=== PATIENT | female | born 1975 | race Caucasian/White ===

== ENCOUNTER 2016-11-28 15:24 | Emergency (ER) | payer BC ==
[~2016-11-28] VITALS: Ht 172.7 cm; Wt 86.2 kg
[~2016-11-28 15:24] MED LIST: ALBUTEROL SULF0.5 ML IH; ALBUTEROL-200 PUFFS/ IN; BACTRIM DS 8001 TAB PO; CARAFATE 1GM TAB1 GM PO; CEFDINIR 300MG300 MG PO; CEFDINIR300 M1 PO; CYCLOBENZAPRINE10 M1 OR; CYMBALTA60 MG PO; DIFLUCAN150 MG PO; FLEXERIL10 MG PO; HYDROXYZINE 25M25 MG PO; INDOCIN25 M1 PO; KEFLEX 500MG.500 MG PO; LORTAB 5/500 501 TAB PO; MACROBID 100MG100 MG PO; MEDROL 4MG. DOSE4 MG PO; METHYLDOPA PO; NOMEDS; PANTOPRAZOLE40 M1 PO; PERCOCET 325 MG1 TA4 PO; PHENERGAN VC +120 ML PO; PRENATAL PLUS1 TA1 PO; PROMETHAZINE D473 ML PO; SEROQUEL50 MG PO; SUBOXONE 8 MG-21 FIL SL; SUBUTEX8 M1 SL; VICODIN 5/500 T1 TAB PO; VISTARIL25 MG PO; ZOFRAN4 MG PO
--- NOTE | 2016-11-28 15:34 | Emergency Room Report ---
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 N Clinical Suspician of Infection? N Mental Status: 1 - Regular (Normal Baseline) Sepsis Risk:Low Sepsis Risk Have you (or family members/close friends) recently traveled outside the [place]? N If Yes, where/when: Have you had exposure to infectious disease within the past month? N TB? Other? Specify: Source patient, RN notes reviewed, old records Exam Limitations no limitations Comment over the last day progressive sore throat and swelling in throat with no rash or cough Cardiac Chest Pain Chest pain indicative of cardiac No Timing/Duration this afternoon Severity moderate ALLERGIES Coded Allergies: No Known Allergies (09/25/15) Home Medications Reported Medications PROMETHAZINE/DEXTROMETHORPHAN (Promethazine-Dm Syrup) 30 ML PO PRN PRN COUGH #240 ML Methylprednisolone (Medrol Dose French) 4 MG PO UD BUPRENORPHINE HCL/NALOXONE HCL (Suboxone 8 MG-2 MG Sl Film) 0.5 EFRAIN SL DAILY NEBIVOLOL HCL (Bystolic) 5 MG PO DAILY Albuterol Sulfate (Albuterol Sulfate 0.5 Ml) 0.5 ML IH #180 Cyclobenzaprine Hcl 10 MG OR #30 History Medical History General Angina: No MA: No Hypertension? Yes Hyperlipidemia? No CHF? No COPD? No Asthma? Yes Hernia? Yes CVA? No Seizures? No Diabetes? No UTI? Yes Stones? No GB Disease: No Hepatitis? No Arthritis? Yes Cataracts? No Glaucoma? No MRSA? No TB? No Cancer? No More? 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 denies: ear pain, epistaxis. Respiratory denies cough, denies shortness of breath, denies wheezing Cardiovascular denies chest pain, denies palpitations, denies syncope Gastrointestinal denies constipation, denies nausea, denies vomiting Genitourinary denies: dysuria, frequency, hesitancy, hematuria. Musculoskeletal denies back pain, denies joint pain, denies joint swelling, denies neck pain Skin denies rash Psychiatric/Neurological denies seizure Physical Exam Vital Signs Vital Signs Date Time Temp Pulse Resp B/P Pulse O2 O2 Flow FiO2 Ox Delivery Rate 11/28 1624 67 18 124/71 98 11/28 1613 18 11/28 1529 98.4 73 18 147/94 98 - WBC >12,000 or <4,000 or 10% bands? 2 or more SIRS Criteria Met? B/P:124/71 MAP:111 Creatinine >2.0? UA output<0.5ml/kg/hr for 2 hrs? Platelet count >100,000? Lactate >2.0mmol/1? INR >1.2 or PTT > than 60 sec? Evidence of Organ Dysfunction? Provider documented clinical suspician of infection? N Sepsis Criteria Count: 0 Sepsis Risk: Low Sepsis Risk General Appearance no apparent distress Eye Exam - bilateral eye PERRL, bilateral eye EOMI Ear, Nose, Throat pharyngeal erythema, tonsillar swelling Neck supple Respiratory Status No: respiratory distress. Lung Sounds bilateral: normal breath sounds. Cardiovascular regular rate/rhythm, no murmur Peripheral Pulses Pulses normal Yes Gastrointestinal soft Extremities normal inspection Strength 4 Upper Ext (L), 4 Upper Ext (R), 4 Lower Ext (L), 4 Lower Ext (R) Neurologic alert, inspector outside steam distribution II-XII nml as tested, no motor/sensory deficits Reflexes Reflexes normal Yes Mental status normal mood/affect Skin intact Medical Decision Making LABS/Meds/Orders Pt receiving controlled substance in ED? No Results/Orders Laboratory Tests 11/28/16 1550: Sodium 140, Potassium 3.5, Chloride 104, Carbon Dioxide 27, BUN 10, Creatinine 0.8, Estimated Creat Clear 128, Estimated GFR (MDRD) 80, Glucose 143 H, Calcium 8.2 L, Total Bilirubin 0.2, AST 61 H, ALT 72, Alkaline Phosphatase 93, Total Protein 6.6, Albumin 3.0 L, Globulin 3.6 H, Albumin/Globulin Ratio 0.8 L, WBC 7.7, RBC 3.97 L, Hgb 14.0, Hct 41.2, MCV 104.0 H, RDW 12.6, Plt Count 209, MPV 6.9 L, Gran % 44.2, Gran # 3.4, Lymphocytes % 48.4, Monocytes % 5.0, Eosinophils % 1.9, Basophils % 0.4, Lymphocytes # 3.7, Monocytes # 0.4, Eosinophils # 0.2, Basophils # 0.0, PUBS MCHC 33.9, MCH 35.3 H, Monoscreen NEGATIVE 11/28/16 1530: Influenza Type A Ag NOT DETECTED, Influenza Type B Ag NOT DETECTED Current Medication Orders Sig/Naveed Start time Last Medication Dose Route Stop Time Status Admin Ceftriaxone Sodium 0 .STK-MED ONE 11/28 1621 DC IV Ceftriaxone Sodium 1 GM ONCE ONE 11/28 1615 AC 11/28 Sodium Chloride 50 ML IV 11/28 1644 1613 Ketorolac 30 MG ONCE ONE 11/28 1615 DC 11/28 Tromethamine IV 11/28 1616 1613 Methylprednisolone 125 MG ONCE ONE 11/28 1615 DC 11/28 Sodium Succinate IV 11/28 1616 1613 Ceftriaxone Sodium 0 .STK-MED ONE 11/28 1610 DC .ROUTE Methylprednisolone 0 .STK-MED ONE 11/28 1610 DC Sodium Succinate .ROUTE Sodium Chloride 100 ML .STK-MED ONE 11/28 1610 DC IV Ketorolac 0 .STK-MED ONE 11/28 1609 DC Tromethamine .ROUTE Sodium Chloride 1,000 ML .Q1H1M 11/28 1600 AC 11/28 IV 11/28 1700 1551 Sodium Chloride 10 ML PRN PRN 11/28 1600 AC 11/28 IV 11/29 1546 1551 Sodium Chloride 1,000 ML .STK-MED ONE 11/28 1550 DC IV Sodium Chloride 10 ML PRN PRN 11/28 1545 AC 11/28 IV 11/29 1545 1551 Orders Procedure Date/time Status IV SALINE LOCK 11/28 1546 Active MONO SCREEN 11/28 1546 Complete COMPLETE METABOLIC PANEL 11/28 1546 Complete CBC WITH AUTO DIFF 11/28 1546 Complete STREP SCREEN THROAT 11/28 1532 Complete INFLUENZA A&B ANTIGENS 11/28 1532 Complete CULTURE, THROAT 11/28 1530 Active Departure Departure Time of Disposition 1632 Disposition DC Home or Self Care(routine) Clinical Impression Primary Impression: Acute pharyngitis Qualifiers: Pharyngitis/tonsillitis etiology: unspecified etiology Qualified Code: J02.9 - Acute pharyngitis, unspecified Condition STABLE Patient Instructions DI for Pharyngitis/Tonsillopharyngitis -- Child Additional Instructions fluids and use meds and see pcp for follow up Discharge Counseling Counseled pt/family regarding diagnosis, test results, medications/RX, follow up needs Prescriptions Current Visit Scripts CEPHALEXIN (Keflex 500MG Capsule) 500 MG PO Q8H #21 [facility] ED Critical Care Critical Care No at 1643
[2016-11-28] MEDS ORDERED: BYSTOLIC5 MG PO (15:37)
[2016-11-28 15:44] LABS: STREP SCREEN (RAPID) NEGATIVE
[2016-11-28 15:57] LABS: LYMPH # 3.7 K/mm3 (0.7-4.5); LYMPH % 48.4 % (10-50.0)
[2016-11-28] MEDS ORDERED: KEFLEX 500MG.500 MG PO (16:41)
[2016-11-28 16:50] VITALS: BP 120/64
== END 2016-11-28 16:53 | disposition home or self-care (01) ==
LOC: ER 15:24
PROVIDERS: Emergency Medicine
DX: J02.9 Acute pharyngitis, unspecified (principal); Z72.0 Tobacco use; I10 Essential (primary) hypertension

== ENCOUNTER → 2017-06-10 | Outpatient (CLI) | payer BC ==
--- NOTE | 2017-06-10 12:24 | RADIOLOGY REPORT PS360 ---
EXAM: LUMBAR SPINE 5 VIEWS HISTORY: ACUTE BILAT LOW BACK PAIN WITH RT SCIATICA ORDERING PHYSICIAN: ZEESHAN MURRAY APRN PATIENT AGE: 41 years COMPARISON: None FINDINGS: Normal alignment. No fracture or dislocation. No lytic or blastic change. No significant degenerative change. The disc spaces are preserved. Minimal lumbar curvature convex left. Multiple left upper quadrant calcifications most of which are felt to be due to splenic granulomas. Cannot exclude renal calculi as well. IMPRESSION: No acute finding.
--- NOTE | 2017-06-10 12:25 | RADIOLOGY REPORT PS360 ---
HIP RT 2-3V W/PELVIS IF PERFOR HISTORY: Right-sided hip pain following injury ACUTE BILAT LOW BACK PAIN WITH RT SCIATICA ORDERING PHYSICIAN: ZEESHAN MURRAY APRN PATIENT AGE: 41 years COMPARISON: None FINDINGS: No fracture or dislocation is evident. No significant degenerative change. No lytic or blastic change. Unremarkable soft tissues IMPRESSION: Negative hip
== END ==
LOC: RAD 10:53
DX: M25.551 Pain in right hip (principal); M54.41 Lumbago with sciatica, right side